=== PATIENT | female | born 1945 | race Caucasian/White ===

== ENCOUNTER 2017-07-23 18:09 | Emergency (ER) | payer OTHER ==
[~2017-07-23] VITALS: Ht 152.4 cm; Wt 80.6 kg
[2017-07-23 18:18] VITALS: BP 140/73; PULSE 75; RESP 14; TEMP 98.1; O2SAT 97
[2017-07-23] MEDS ORDERED: LEVO75TA3 PO (18:38)
[2017-07-23] MEDS ORDERED: [UNRECOGNIZED DRUG - OTHER] PO (18:38)
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
[2017-07-23] MEDS ORDERED: NAPR-855 PO (20:05)
[2017-07-23] MEDS ORDERED: CYCL5TAB PO (20:05)
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
[2017-07-23] MEDS ORDERED: ORPHENADRINE INJ 60 MG/2 ML AMP IM ONE (20:15)
[2017-07-23] MEDS ORDERED: KETOROLAC TROMETHAMINE 60 MG/2 ML (IM) VIAL IM ONE (20:15)
== END 2017-07-23 20:33 | disposition home or self-care (01) ==
LOC: PHEFT 18:09
DX: S40.021A Contusion of right upper arm, initial encounter (principal); M25.511 Pain in right shoulder; M79.661 Pain in right lower leg; R07.81 Pleurodynia; I10 Essential (primary) hypertension; E07.9 Disorder of thyroid, unspecified; V49.88XA Car occupant (driver) (passenger) injured in other specified transport accidents, initial encounter
CPT/HCPCS: 71101; 73060; 96372; 99284; J1885; J2360